=== PATIENT | male | born 1970 | race American Indian/Alaskan Native ===

== ENCOUNTER 2016-09-17 14:41 | Emergency (ER) | payer SELFPAY ==
[2016-09-17 15:20] VITALS: BP 160/101
[2016-09-17] MEDS ORDERED: MOTRIN PO ONE (15:54)
[2016-09-17] MEDS ORDERED: PERCOCET 5/325 PO ONE (15:54)
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
[2016-09-17] MEDS ORDERED: BOOSTRIX IM ONE (16:07)
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
[2016-09-17] MEDS ORDERED: NACL 0.9% 500 ML IR ONE (17:17)
== END 2016-09-17 18:30 | disposition home or self-care (01) ==
LOC: ED 14:41
DX: S62.621A Displaced fracture of middle phalanx of left index finger, initial encounter for closed fracture (principal); F17.200 Nicotine dependence, unspecified, uncomplicated; W34.00XA Accidental discharge from unspecified firearms or gun, initial encounter; Y93.89 Activity, other specified; Y99.9 Unspecified external cause status; Y92.89 Other specified places as the place of occurrence of the external cause
CPT/HCPCS: 90471; 90715